=== PATIENT | female | born 1955 | race African-American/Black ===

== ENCOUNTER → 2019-05-09 | Outpatient (CLI) | payer BC ==
--- NOTE | 2019-05-09 13:58 | KCIC ---
EXAM: Isaac scale and color Doppler renal artery sonogram. HISTORY: Hypertension. TECHNIQUE: Isaac scale and color Doppler sonographic imaging of the kidneys and renal arteries with spectral waveform analysis was performed. COMPARISON: None. FINDINGS: The right kidney measures 10.1 cm [id number]. The left kidney measures 9.4 cm [id number]. There is a 2.1 cm simple appearing cyst within the lower pole the right kidney. No solid renal lesion is seen. There is no hydronephrosis. The bladder is unremarkable. The renal veins are patent. The aorta is mildly ectatic. The peak systolic velocities within the renal arteries measure 146 cm/s on the right and 163 cm/s on the left. There are normal renal artery to aorta velocity ratios. IMPRESSION: 1. No Doppler evidence of greater than 60% stenosis within the renal arteries. 2. 2.1 cm simple appearing cyst within the right kidney. Electronically signed by: Carolynn Manzo MD (05/09/2019 1:54 PM) [id number]
== END | disposition home or self-care (01) ==
LOC: KCIC US 08:09
PROVIDERS: ATTEND Family Medicine
DX: I77.811 Abdominal aortic ectasia (principal); I10 Essential (primary) hypertension
CPT/HCPCS: 93975